=== PATIENT | female | born 1930 | race Caucasian/White ===

== ENCOUNTER 2019-04-30 01:19 | Inpatient (IN) ==
[2019-04-30] MEDS ORDERED: NS 1,000 ML IV ONE (01:47)
[2019-04-30] MEDS ORDERED: APRESOLINE IV ONE (01:47)
[2019-04-30 02:01] LABS: BASO# 0.04 X1000 (0.0-0.2); BASO% 0.5 % (0.0-0.8); EOS# 0.35 X1000 (0.0-0.7); EOS% 4.7 % (0.0-10.0); HEMATOCRIT 33.1 % (37.0-47.0); HEMOGLOBIN 10.9 g/dL (12.0-16.0); LYMPH# 1.42 X1000 (1.2-3.4); LYMPH% 19.3 % (20.5-51.1); MCH 32.7 PG (27-31); MCHC 32.9 g/dL (33-37); MCV 99.4 FL (81-99); MONO# 0.59 X1000 (0.11-0.59); MPV 9.4 FL (7.4-10.4); NEUT# 4.97 X1000 (1.4-6.5); NEUT% 67.5 % (42.2-75.2); PLT 366 X1000 (130-400); RBC 3.33 XMIL (4.2-5.4); RDW 14.8 % (11.5-14.5); WBC 7.37 X1000 (4.8-10.8)
[2019-04-30 02:06] LABS: INR 1.01; PROTIME 13.4 Seconds (11.0-16.0)
[2019-04-30 02:07] LABS: PTT 36.5 Seconds (22.3-41.8)
--- NOTE | 2019-04-30 02:08 | PROVIDER DOCUMENTATION ---
This chart was entered by Syl Lacy Scribe, acting as scribe for Zachary Matos MD. HPI-Neurological Disorder - General Chief Complaint: Wheezing Stated Complaint: NO ENERGY, WEAK, WHEEZING Time Seen by Provider: 04/30/19 01:31 Source: patient Allergies/Adverse Reactions: Patient Allergies Allergy/AdvReac Type Severity Reaction Status Date / Time Penicillins AdvReac Unknown Verified 04/30/19 02:03 Home Medications: Home Medication List Medication Instructions Recorded Confirmed Last Taken Type Loratadine [Claritin] 10 mg PO DAILY 04/30/19 04/30/19 Unknown History - History of Present Illness-Neuro Nature of Presenting Problem: 88 y/o female presents to ED with fatigue, decreased ability to walk/stand, vision loss in R eye, SOB, and numbness in legs/feet onset this afternoon. Pt denies any speech disturbances or hx CVA. of pt reports she has had a cold for the past 4 days. Pt denies hx HTN. Pt states her vision is back to normal now and started clearing about 3 hours after onset. Pt is alert and oriented. Severity: reports: moderate Onset/Duration: reports: this afternoon Timing: reports: still present, improving Context: reports: paresthesia, other (fatigue, decreased ability to walk/stand, vision loss in R eye, SOB) Character of Altered Mental Status: reports: N/A Any recent trauma/injury?: reports: none Character of Deficits: reports: new weakness, vision problem/glaucoma, decreased ability to stand, decreased ability to walk New weakness or altered sensation location:: reports: RLE, LLE Cognitive Baseline: alert, oriented x3 Gait Baseline: walks without assistance Associated Symptoms: reports: short of breath, decreased ability to walk or stand, fatigue, numbness in legs/feet, paresthesia, tingling in legs/feet, trouble walking, vision changes, weakness Similar Symptoms Previously?: No Recently seen or treated by another doctor?: No Review of Systems - Adult - REVIEW OF SYSTEMS - ADULT Constitutional: reports: fatique. denies: chills, fever Eyes: reports: decreased vision (R eye). denies: eye pain Ears, Nose, Mouth & Throat: reports: no symptoms reported Cardiovascular: denies: chest pain, palpitations Respiratory: reports: shortness of breath. denies: cough Gastrointestinal: denies: abdominal pain, diarrhea, nausea, vomiting Genitourinary: reports: no symptoms reported Musculoskeletal: reports: no symptoms reported Integumentary: reports: no symptoms reported Neurological: reports: numbness (legs/feet), other (decreased ability to walk/stand). denies: dizziness/vertigo, seizure Psychiatric: reports: no symptoms reported Endocrine: reports: no symptoms reported Hematologic/Lymphatic: reports: no symptoms reported Allergic/Immunologic: reports: no symptoms reported All Other Systems: Reviewed and Negative Past History - Adult - PAST MEDICAL HISTORY-ADULT Review of Records: reports: Old Records Reviewed, Nursing Assessment Review, M edications Reviewed Major Childhood Illnesses: reports: denies history - PRIOR SURGERIES/PROCEDURES Surgical/Procedure History: reports: none - IMMUNIZATION STATUS Childhood Immunizations: See Nurse Assessment Flu Vaccine: See Nurse Assessment - FAMILY HISTORY Family History: reviewed, not pertinent - SOCIAL HISTORY Smoking: non-smoker Substance Use: none/never Alcohol Use Frequency: never Living Situation: family Physical Exam- Neurological - Physical Exam-Neuro Initial Vital Signs Reviewed: Yes (200/95) General Appearance: appears well, alert, no apparent distress Eye Exam: bilateral eye: normal inspection, PERRL, EOMI HENMT: normocephalic/atraumatic, moist mucous membranes, normal ENT inspection Head Injury: no evidence of injury Neck: non-tender, full range of motion Respiratory: chest non-tender, normal breath sounds, wheezing (bilaterally) Cardiovascular: normal peripheral pulses, regular rate, rhythm Abdominal Exam: normal bowel sounds, non tender, soft, distended Extremity: normal range of motion, non-tender, 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 Exam: normal hearing, normal speech, PERRL Coordination/Gait: normal finger to nose, normal gait Motor/Sensory: no motor deficit, no sensory deficit, no pronator drift Neurologic: 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 II-XII nml as tested, grossly normal, no motor/sensory deficits Integumentary: normal color, warm/dry Psych/Mental Status: normal mood/affect, normal thought content, normal thought process, oriented x 3 Progress - PLAN OF CARE/RESULTS Progress/Plan/Lab Results: Vital Signs - 8 hr 04/30/19 01:21 04/30/19 01:30 04/30/19 01:32 Temperature 97.8 F Pulse Rate 89 Respiratory Rate 18 Blood Pressure 193/80 221/105 200/95 O2 Sat by Pulse Oximetry 96 94 L 92 L 04/30/19 01:45 04/30/19 01:47 04/30/19 02:41 Temperature Pulse Rate Respiratory Rate Blood Pressure 199/85 201/88 O2 Sat by Pulse Oximetry 94 L 93 L 04/30/19 02:43 04/30/19 02:45 04/30/19 02:47 Temperature Pulse Rate Respiratory Rate Blood Pressure 206/88 O2 Sat by Pulse Oximetry 94 L 95 95 04/30/19 03:00 04/30/19 03:02 04/30/19 03:38 Temperature Pulse Rate 88 Respiratory Rate 16 Blood Pressure 178/95 O2 Sat by Pulse Oximetry 96 96 Laboratory Results - last 24 hr 04/30/19 04/30/19 04/30/19 01:47 01:47 01:47 WBC 7.37 RBC 3.33 L Hgb 10.9 L Hct 33.1 L MCV 99.4 H MCH 32.7 H MCHC 32.9 L RDW Std Deviation 14.8 H Plt Count 366 MPV 9.4 Immature Gran % (Auto) 0.0 Neut % (Auto) 67.5 Lymph % (Auto) 19.3 L [place] % (Auto) 8.0 Eos % (Auto) 4.7 Baso % (Auto) 0.5 Immature Gran # (Auto) 0.00 Neut # (Auto) 4.97 Lymph # (Auto) 1.42 [place] # (Auto) 0.59 Eos # (Auto) 0.35 Baso # (Auto) 0.04 PT INR PTT (Actin FS) Sodium 139 Potassium 4.2 Chloride 102 Carbon Dioxide 25 Anion Gap 12 BUN 16 Creatinine 0.7 Estimated GFR/1.73 m2 > 60 BUN/Creatinine Ratio 23 Glucose 114 H Calculated Osmolality 280 Calcium 9.1 Total Bilirubin 0.31 AST 16 ALT 13 Alkaline Phosphatase 70 Troponin T Mub-E-Bxlcrfmfsiq Pept 541 H Total Protein 6.5 Albumin 4.4 Globulin 2.1 Albumin/Globulin Ratio 2.1 Urine Source Urine Color Urine Turbidity Urine pH Ur Specific [place] Urine Protein Ur Glucose (Stick) Ur Ketones (Stick) Urine Blood Urine Nitrite Urine Bilirubin Urobilinogen Dipstick Urine Leukocytes Urine WBC (Auto) Urine RBC (Auto) U Epithel Cells (Auto) Urine Bacteria (Auto) 04/30/19 04/30/19 04/30/19 01:47 01:47 02:39 WBC RBC Hgb Hct MCV MCH MCHC RDW Std Deviation Plt Count MPV Immature Gran % (Auto) Neut % (Auto) Lymph % (Auto) [place] % (Auto) Eos % (Auto) Baso % (Auto) Immature Gran # (Auto) Neut # (Auto) Lymph # (Auto) [place] # (Auto) Eos # (Auto) Baso # (Auto) PT 13.4 INR 1.01 PTT (Actin FS) 36.5 Sodium Potassium Chloride Carbon Dioxide Anion Gap BUN Creatinine Estimated GFR/1.73 m2 BUN/Creatinine Ratio Glucose Calculated Osmolality Calcium Total Bilirubin AST ALT Alkaline Phosphatase Troponin T < 0.010 Ijx-N-Syacqapauhs Pept Total Protein Albumin Globulin Albumin/Globulin Ratio Urine Source CLEAN CATCH Urine Color STRAW Urine Turbidity CLEAR Urine pH 7.0 Ur Specific [place] 1.011 Urine Protein NEGATIVE Ur Glucose (Stick) NEGATIVE Ur Ketones (Stick) NEGATIVE Urine Blood NEGATIVE Urine Nitrite NEGATIVE Urine Bilirubin NEGATIVE Urobilinogen Dipstick NORMAL Urine Leukocytes SMALL A Urine WBC (Auto) <10 Urine RBC (Auto) <10 U Epithel Cells (Auto) <10 Urine Bacteria (Auto) NEGATIVE Orders Category Date Time Status Nursing- Obtain EKG ONCE Care 04/30/19 01:41 Active Repeat Vital Signs .Blood Pressure Care 04/30/19 03:[address] HEAD W/O CONTRAST [CT] Stat Exams 04/30/19 01:41 Taken cxr [CHEST-1 VIEW] [RAD] Stat Exams 04/30/19 01:43 Taken CBC WITH ELECTRONIC DIFF [HEME] Stat Lab 04/30/19 01:47 Completed COMPREHENSIVE METABOLIC PANEL [CHEM] Stat Lab 04/30/19 01:47 Completed PRO B-NATRIURETIC PEPTIDE Stat Lab 04/30/19 01:47 Completed PROTIME WITH INR [COAG] Stat Lab 04/30/19 01:47 Completed PTT [COAG] Stat Lab 04/30/19 01:47 Completed TROPONIN T Stat Lab 04/30/19 01:47 Completed URINALYSIS W/POSS RFLX CULT [URINALYSIS] Stat Lab 04/30/19 02:39 Completed 0.9% Sodium Chloride Inj [Ns] 1,000 ml Med 04/30/19 01:47 Active IV 125 mls/hr Albuterol 2.5MG/Ipratrop 0.5MG [Duoneb (A & A)] Med 04/30/19 03:09 Discontinued 3 ml INH NOW ONE Aspirin Med 04/30/19 04:01 Once 325 mg PO NOW ONE Hydralazine [Apresoline] Med 04/30/19 01:47 Discontinued 10 mg IV NOW ONE Aerosol Treatments Routine Oth 04/30/19 03:09 Completed Aerosol Treatments Stat Oth 04/30/19 03:09 Completed Oxygen Device Stat Oth 04/30/19 01:47 Completed EKG [EKG] Stat Ther 04/30/19 01:41 Draft While in the ER nurse said that pt slipped off toilet bumping her rt forehead. There was no LOC, AMS or N/V. Admission discussed with Dr Burden who agreed to admit. Result Diagrams: 04/30/19 01:47 04/30/19 01:47 - EKG 1 Time of EKG reading by physician:: 01:58 EKG Read and Signed by:: Zachary Matos EKG Interpretation (*Must complete 3 of following elements*): Normal Rate: 79 Rhythm: NSR [place]: normal QRS: normal NC Interval: normal ST Wave: normal - XRAY 1 XRAY Study: Chest Impression: See EMR Report - CT/MRI 1 CT Study: Head Impression: See EMR Report - CONSULTS/PCP/HOSPITALIST Notification #1 *Consult/PCP/Hospitalist*: Dr Burden Time Discussed: 04:03 Consult Disposition: Will see in ED, Admit Departure - Departure Date of Disposition Decision: 04/30/19 Time of Disposition Decision: 04:03 DIAGNOSIS: TIA (transient ischemic attack), Weakness, UTI (urinary tract infection) Disposition: ADMITTED INPATIENT 09 Certified Medical Emergency: Emergent Condition: Fair Referrals and Follow-Ups: Rohan Du MD [Primary Care Provider] - - Critical Care Note This patient required my direct & personal management of CC.: No Attestation - Physician/ MALLY Attestation Patient care was provided by Advanced Practice Provider:: No The physician spent face to face time with patient:: Yes Advanced Practice Provider documentation review:: Supervising physician onsite and consulted in the evaluation and care of this patient. The physician did have a face to face encounter with the patient. - NIH Stroke Scale NIH Type: Initial Evaluation Level of Consciousness: 0-Alert LOC Questions (ask month and age): 0-Answers Both Correctly LOC Commands (ask to open & close eyes;make a fist, let go): 0-Obeys Both Correctly Best Gaze (horizontal eye movement): 0-Normal Visual (use finger movement, counting or visual threat): 0-No Visual Loss Facial Palsy (show teeth or raise eyebrows & close eyes tght: 0-Symmetrical Movement Motor Function-left arm: 0-Normal Motor Function-right arm: 0-Normal Motor Function-left le-Normal Motor Function-right le-Normal Limb Ataxia(pwypvw-swqi-pdnvww, or heel to mercado): 0-No Ataxia Sensory(pin prick to face,arms,trunk,legs-compare side/side): 0-No Ataxia Best Language(name item/read sentence.Ex-Down to Earth): 0-No Aphasia Dysarthria(Pt read words or say words Ex.Mama,Tip-Top,Thanks: 0-Normal Articulation Extinction and Inattention: 0-Normal NIH Total Score: 0 Modified Travis Score Criteria: 0-no symptoms Stroke tPA Guidelines - Inclusion Criteria for IV tPA 18 years old or older: Yes Ischemic stroke with measurable deficit: No Onset <3 hours ago *OR* 3-4.5 hours ago: No - Exclusion Criteria for IV tPA Evidence of intracranial hemorrhage on CT: No Presentation suggest SAH: No CT reveals defined area of hypodensity: No Evidence of AVM, neoplasm, aneurysm: No Seizure at stroke onset: No Active internal bleeding or acute trauma: No Platelet Count Less Than 100,000: No Heparin Within Last 48 HRS (PTT >Lab normal limits): No INR > 1.7 (warfarin use): No Use IIB/IIIA inhibitors within 24 hours: No Serious Head Trauma Within Last 3 Months: No Arterial Puncture Within Last 7 Days: No Lumbar Puncture Within Last 7 Days: No Repeated systolic Blood Pressure >185 or Diastolic >110: Yes - Additional Exclusion Criteria for IV tPA Currently on Coumadin: No Patient older than 80: Yes Prior stroke and diabetes: No Baseline NIHSS score > 25: No - Relative Contraindications to IV tPA CT reveals extensive area of infarct (>1/3 MCA territory): No Minor or rapidly improving stroke symptoms: Yes Major Surgery or Serious Trauma In Previous 14 Days: No AMI within 3 months: No Gastrointestinal or Urinary Tract hemorrhage in Past 21 Days: No Post - AMI pericarditis: No Blood Glucose Less Than 50 mg/dl or Greater Than 400 mg/dl: No - Consultation Candidate for:: NOT A CANDIDATE Reason not a candidate:: Stroke symptoms resolved. NIH score of 0. This chart was documented by the indicated scribe, (Syl Lacy, Scribmani) and accurately reflects the services I performed and decisions made by me, Zachary Matos MD, as attested by the provider's signature.
[2019-04-30 02:44] LABS: AGAP 12; ALB/GLOB RATIO 2.1; ALBUMIN 4.4 g/dL (3.5-5.0); ALKALINE PHOSPHATASE 70 U/L (32-104); BUN 16 mg/dL (8-22); CALCIUM 9.1 mg/dL (8.8-10.2); CHLORIDE 102 mmol/L (98-107); COSMO 280; CREATININE 0.7 mg/dL (0.5-0.9); ESTIMATED GFR > 60; GLUCOSE 114 mg/dL (70-104); GOT 16 U/L (10-30); GPT 13 U/L (10-36); POTASSIUM 4.2 mmol/L (3.5-5.1); SODIUM 139 mmol/L (136-145); TCO2 25 mmol/L (25-35); TOTAL BILIRUBIN 0.31 mg/dL (0.20-1.00); TOTAL PROTEIN 6.5 g/dL (6.3-8.3)
[2019-04-30 02:52] LABS: URINE SOURCE CLEAN CATCH
[2019-04-30 02:57] LABS: BILIRUBIN URINE NEGATIVE (NEGATIVE); BLOOD URINE NEGATIVE (NEGATIVE); COLOR STRAW; GLUCOSE URINE NEGATIVE (NEGATIVE); KETONE URINE NEGATIVE (NEGATIVE); LEUKOCYTES URINE SMALL (NEGATIVE); NITRITE URINE NEGATIVE (NEGATIVE); PROTEIN URINE NEGATIVE (NEGATIVE); SP GRAVITY URINE 1.011; TURBIDITY URINE CLEAR (CLEAR); UROBILINOGEN URINE NORMAL (NORMAL)
[2019-04-30 02:59] LABS: UR EPITHELIAL CELLS <10 /HPF (<10); URINE BACTERIA NEGATIVE /HPF; URINE RBC <10 /HPF (<10); URINE WBC <10 /HPF (<10)
[2019-04-30] MEDS ORDERED: DUONEB (A & A) INH ONE (03:09)
--- NOTE | 2019-04-30 03:45 | EKG Report ---
Test Performed on : 04/30/2019 01:58:45 AM Test Reason : sob, htn Blood Pressure : / mmHG Vent. Rate : 079 BPM Atrial Rate : 079 BPM P-R Int : 140 ms QRS Dur : 092 ms QT Int : 416 ms P-R-T Axes : 018 020 082 degrees QTc Int : 477 ms Normal sinus rhythm. Normal ECG No previous ECGs available Unconfirmed Result
[2019-04-30] MEDS ORDERED: ASPIRIN PO ONE (04:01)
--- NOTE | 2019-04-30 05:28 | HISTORY AND PHYSICAL ---
PRIMARY CARE PHYSICIAN: Dr. Du. CHIEF COMPLAINT: Right eye vision loss, difficulty ambulating x1 day. HISTORY OF PRESENTING ILLNESS: This is an 88-year-old elderly female without any significant past medical history who had presented to the emergency department with a 1-day history of having right eye vision loss and difficulty ambulating. She states that her vision has been improving over the past several hours. The patient states that this occurred earlier yesterday afternoon and she has been feeling weak. She was trying to get over a cold recently that has been going on for the past 5 days. The patient states that her unsteadiness was worsening and subsequently she had come to the emergency department. In the ED, she was evaluated and due to her presenting symptoms and suspicion of possible TIA it was thought that she would need admission for further management. At the time of my examination, patient denied any fever, chills, chest pain, shortness of breath hemoptysis or any weight changes, but complained of a headache. While she was in the ER and was going to the bathroom, she apparently became unsteady and fell and hit her right forehead. PAST MEDICAL HISTORY: anxiety disorder. PAST SURGICAL HISTORY: None. ALLERGIES: Penicillin and Tapazole. CURRENT MEDICATIONS: Claritin 10 mg p.o. daily. SOCIAL HISTORY: No history of smoking, alcohol or illicit drug use. FAMILY HISTORY: No history of coronary artery disease. REVIEW OF SYSTEMS: Fourteen point review of systems listed as in HPI. Other systems negative. PHYSICAL EXAMINATION: GENERAL: Cooperative, pleasant elderly female. She is without any respiratory distress. VITAL SIGNS: Temperature 97.8 degrees, pulse 89, respiration 18, blood pressure 193/80. HEENT: Extraocular movements intact. PERRLA. There is some small soft-tissue injury in her right forehead. NECK: No masses. CHEST: Scattered wheezes. CARDIOVASCULAR: Regular rate and rhythm. ABDOMEN: Soft. Positive bowel sounds. EXTREMITIES: No edema. NEUROLOGIC: She is awake, alert, oriented x1. GENITOURINARY: No bladder distention. SKIN: Warm. LABORATORIES AND STUDIES: WBC 7.37, hemoglobin 10.9, hematocrit 33.1, platelets 366,000. Sodium 139, potassium 4.2, chloride 102, CO2 is 25, BUN is 16, creatinine 0.7, glucose 114. Troponin 0.010. CT of the head was unremarkable. ASSESSMENT: This is an 88-year-old elderly female without any significant past medical history who had presented to emergency department due to patient having vision loss in the right eye and unsteadiness in her gait. She was seen in the ED and due to her presenting symptoms she will require admission for further management. 1. Suspected transient ischemic attack. We will need to rule out cerebrovascular accident. 2. Upper respiratory infection/bronchitis. 3. Elevated Blood Pressure PLAN: 1. We will admit patient to medical floor with telemetry. 2. Continue with stroke workup. 3. We will check MRI of the brain. 4. Consult Neurology. 5. Continue with supportive treatment for bronchitis. 6 Monitor BP closely. 7. Put patient on DVT prophylaxis with SCD. 8. We will continue to follow, and reassess and make further recommendation based on patient's clinical course. cc: Rolando Burden MD MTDD
--- NOTE | 2019-04-30 05:49 | Diag Imaging Result Doc PS360 ---
EXAM: CT HEAD W/O CONTRAST HISTORY: tia stroke TECHNIQUE: CT head without contrast COMPARISON: None. FINDINGS: No parenchymal hemorrhage. No epidural or subdural hematoma. No subarachnoid hemorrhage. There is mild atrophy with mild chronic microvascular ischemic changes. No mass identified on this noncontrasted exam. No hydrocephalus. No sinus opacification. IMPRESSION: 1.No hemorrhage 2.Mild atrophy with chronic microvascular ischemic changes. 3.A preliminary report was given at 2:56 AM This exam was performed using automated exposure control, adjustment of mA or kV according to patient size, and/or use of iterative reconstruction technique. Electronically signed by Kenyon Reynolds 04/30/2019 5:47 AM
--- NOTE | 2019-04-30 06:53 | Diag Imaging Result Doc PS360 ---
CHEST-1 VIEW - 04/30/2019 INDICATION: wheezing COMPARISON: None FINDINGS: The lungs are normally expanded and clear. Heart size and mediastinal contours are normal. No pneumothorax or pleural effusion. There is a small calcified granuloma in the left midlung. IMPRESSION: Negative exam. Electronically signed by Tushar Martinez 04/30/2019 6:51 AM
[2019-04-30] MEDS ORDERED: DUONEB (A & A) INH PRN (07:42)
[2019-04-30] MEDS ORDERED: TESSALON PO PRN (07:42)
[2019-04-30] MEDS ORDERED: PREDNISONE PO ONE (08:46)
[2019-04-30] MEDS ORDERED: COZAAR PO SCH (09:00)
--- NOTE | 2019-04-30 11:18 | CONSULTATION ---
DATE OF CONSULTATION: 04/30/2019 HISTORY OF PRESENT ILLNESS: Ms. Whalen is 88 years old and she noted focal loss of visual field following a fall yesterday. She believes she has recovered back to baseline today. She reports feeling poorly for the last few months and she attributes that to having "a cold." She had been taking hawf-mvd-qlpvezo medicines including loratadine and pseudoephedrine regularly for the last few months. She was at home and finished lunch yesterday. She turned and fell. Her report is that she simply lost balance and sat down quickly. She believes she did not strike her head. She believes there was not altered awareness, unconsciousness, or memory gap. She collected herself, scooted over and pulled up on a piece of furniture and then ambulated without difficulty. A short time after that, she was seated watching television and noted she could see the left side of the television and she could not see the right side well. She rested and believes her vision recovered spontaneously in an uncertain time frame, possibly 15 or 20 minutes. She did not do any cover/uncover testing or gaze left and right to test vision. She did not notice change in speech, chewing and swallowing, hearing, facial appearance, gait, power. She specifically denies associated focal weakness and numbness. She believes she has been unsteady and that she has had some imbalance for the last few months. She fell once a few months ago and she attributes that to a dog getting in her way. She thinks she might have fallen 1 other time, but that was minor and she does not recall details. There is no history of previous diagnosed stroke. She has never had seizure, serious head injury, or other neurologic event. She did bump her head in the bathroom overnight in the emergency room, but that seems to have been unrelated to her chief complaint. She has had carotid ultrasound with reports pending. She left for brain MRI as I finished examining her. She has been afebrile. Heart rate has been stable in the 80s. Systolic blood pressures were 190s- 220s on presentation and 150s-180s in recent hours. Computer record shows carotid ultrasound was unremarkable done 09/25/2014. She does not recall specifically why that study was done and she is certain there was not an incident leading to that study. PAST HISTORY: Remarkable for cataracts with recent eye procedures bilaterally. She has eye drops for each eye, loratadine and pseudoephedrine as above, [id number] vitamins. She reports some soreness in the limbs and trouble getting up steps when she was taking a statin, so she stopped that a few years ago. She reports she has never needed blood pressure medicine. She has never had diabetes mellitus. She does not smoke cigarettes or use ethanol. PHYSICAL EXAMINATION: On exam, Ms. Whalen is awake, alert, attentive and appropriate. Speech is not dysarthric. Language function is intact on bedside testing. Memory is good. She has some ecchymosis around the right lateral periorbital area. There is no skull defect. There is no meningismus. Head and neck are otherwise unremarkable. Visual santacruz are full, tested monocularly and binocularly to confrontational finger counting. Extraocular movements are full. The right pupil reacts slightly to light. I could not see definite pupil reaction on the left. Facial motility is symmetric. Gag is intact. Tongue is midline. She can hear. Shoulder shrug is equal. Strength is normal in the arms and legs. She did well on icznwh-mv-kphh testing bilaterally. She reports good pinprick appreciation symmetrically over the limbs. Proprioception is good at the great toe MTP joint bilaterally. Reflexes are trace at the ankles, 1+ at the knees, 1+ at the wrists symmetrically. Plantar response is silent bilaterally. Strength is normal in the arms and legs. I did not test her gait. IMPRESSION: She gives very good history suggesting transient right hemianopia. She had fallen just before that with unclear explanation. Fall might have been due to transient right hemiparesis or transient cerebellar deficit or she may have fallen related to blood pressure or other problems. She seems completely recovered now. I will check on the MRI when that is reported. I do not have any urgent suggestion right now. I would continue allowing blood pressure in the current range and then consider treating that more aggressively if workup is negative for acute stroke. She may be a candidate for retrial with statin or newer medicine for cholesterol management. She will likely be a candidate for antiplatelet medicine. After MRI and other workup is reported, she might get some benefit with physical therapy. Further plans will depend on her clinical course. Thanks for asking Neurology to see Ms. Whalen. cc: MD Rolando Serna III, MD [facility]
[2019-04-30] MEDS: DUONEB (A & A) INH SCH ×2 (11:20→19:42)
--- NOTE | 2019-04-30 11:32 | Diag Imaging Result Doc PS360 ---
EXAM: MRI BRAIN W/WO CONTRAST HISTORY: stroke TECHNIQUE: MRI brain with and without contrast. Axial, sagittal, and coronal images obtained in multiple sequences. These are followed by post contrasted axial and coronal images. COMPARISON: Recent CT FINDINGS: Small recent lacunar infarcts medially in the left temporal lobe. There are mild chronic microvascular ischemic changes. No mass or midline shift. No enhancing lesion on the post contrasted images. Mild atrophy. No epidural or subdural fluid collection. Normal orbits. Mild sinus mucosal thickening. No opacification. IMPRESSION: 1.Small recent medial left temporal infarcts 2.Mild atrophy with chronic microvascular ischemic changes 3.Mild sinusitis Electronically signed by Kenyon Reynolds 04/30/2019 11:30 AM
--- NOTE | 2019-04-30 18:08 | PROGRESS NOTE ---
DATE: 04/30/2019 SUBJECTIVE: The patient's chart was fully reviewed. She presented with dizziness and loss of vision in 1 eye. She really had been brought to the hospital because of wheezing and shortness of breath that was not resolving. As a result of her complaining of loss of vision in the right eye, CT scan was performed which was negative, but she was admitted for stroke workup. The problem with the vision in the right eye disappeared or evaporated by the time she was transferred to the floor, possibly even during her emergency room stay. No real infectious process was identified and she was treated for bronchitis. VITAL SIGNS: 97.8, 88, 16, 161/51, 96% saturated on room air. PHYSICAL EXAMINATION: Time of my examination, the patient was awake, alert, oriented and conversive and appropriate. She vociferously complained about being in the hospital and wanted to be discharged. I tried to explain to her the risks involved.Lungs: Had bilateral end-expiratory wheezes with good air movement. No respiratory distress. Cardiovascular: Was regular. Neck: Revealed no carotid bruits. Extremities: No peripheral edema. LABORATORIES: All labs were thoroughly reviewed. Her white cell count was 7.3, hematocrit 33.1, blood sugar 114. Troponin was negative. Urinalysis was normal. CT scan of the head did not show any acute process. DISCUSSION AND DECISION-MAKIN. I saw the patient in the morning and she seemed fine and wanted to go home. I convinced her to stay for further workup. She had a consultation with Dr. Marin who agreed that she may have had a stroke. MRI came back as a few recent lacunar infarcts which potentially could have influenced her situation. At the time of this dictation, I did not have an official report on carotid ultrasound or echocardiography. There had been no reports of any problems with telemetry monitoring either. The patient again complained that she wanted to go home but I told her I needed to observe her heart rhythm overnight for a bit longer and to have those reports officially in my hand at the time of discharge. The patient is on aspirin. 2. The patient's blood pressure was elevated at the time of arrival to the emergency room. It remained high throughout the day. My review of office records showed no such elevations in blood pressure during routine visits. Dr. Marin did not want to drop her pressure too much, so we avoided giving any further blood pressure medication. 3. It was noted the patient has a moderate normocytic anemia, which will need workup in the future. 4. The patient states that she will need something to sleep and she has not slept all night or all day and I have given her a dose of Restoril tonight to try and help her relax. The overall plan is that if telemetry monitoring is okay and we have reports that the carotid arteries and echocardiogram are grossly normal then we will likely send her home with antihypertensive medication and aspirin. cc: MD Rolando Simmons MD
[2019-04-30] MEDS ORDERED: RESTORIL PO SCH (21:00)
--- NOTE | 2019-04-30 21:15 | ECHO REPORT ---
ORDER DATE: 04/30/2019 INTERPRETING PHYSICIAN: Dr. Yeyo Aguillon. ECHOCARDIOGRAPHIC MEASUREMENTS: 1. Interventricular septum 1.2 cm. 2. Left ventricular posterior wall 1.2 cm. 3. Diastolic diameter 3.5 cm. 4. Aorta 2.5 cm. SUMMARY OF THE 2-DIMENSIONAL IMAGIN. Aortic valve leaflets were trileaflet. Aortic valve leaflets were sclerosed. 2. Pulmonic valve was normal. There was mild pulmonary regurgitation. 3. Tricuspid valve was normal. 4. Mitral valve leaflets were mildly thickened. There was moderate mitral annular calcification. 5. Normal left ventricular cavity size. Concentric left ventricular hypertrophy. Estimated ejection fraction of 70%. 6. There was left atrial enlargement. 7. There was mild mitral regurgitation. There was diastolic dysfunction grade 2. 8. There was mild tricuspid regurgitation. Peak velocity across the tricuspid valve was 3 m/sec. 9. Pulmonary artery systolic pressure was 46 mmHg. 10. There was no aortic stenosis. There was no aortic regurgitation. 11. There was no pericardial effusion or obvious intracardiac mass or thrombus seen. cc: MD Rohan Magaña MD Lloyd James, MD
[2019-05-01 07:34] LABS: BASO# 0.02 X1000 (0.0-0.2); BASO% 0.3 % (0.0-0.8); EOS# 0.12 X1000 (0.0-0.7); EOS% 2.1 % (0.0-10.0); HEMATOCRIT 34.3 % (37.0-47.0); HEMOGLOBIN 11.2 g/dL (12.0-16.0); IMM GRAN# 0.02 X1000 (0.0-0.04); IMM GRAN% 0.3 % (0.0-0.5); LYMPH# 1.58 X1000 (1.2-3.4); LYMPH% 27.1 % (20.5-51.1); MCH 32.7 PG (27-31); MCHC 32.7 g/dL (33-37); MONO# 0.51 X1000 (0.11-0.59); MONO% 8.8 % (1.7-9.3); MPV 9.7 FL (7.4-10.4); NEUT# 3.57 X1000 (1.4-6.5); NEUT% 61.4 % (42.2-75.2); PLT 371 X1000 (130-400); RBC 3.43 XMIL (4.2-5.4); RDW 14.9 % (11.5-14.5); WBC 5.82 X1000 (4.8-10.8)
[2019-05-01 08:04] LABS: AGAP 11; BUN 17 mg/dL (8-22); CALCIUM 9.1 mg/dL (8.8-10.2); CHLORIDE 103 mmol/L (98-107); COSMO 281; CREATININE 0.6 mg/dL (0.5-0.9); ESTIMATED GFR > 60; GLUCOSE 101 mg/dL (70-104); POTASSIUM 4.7 mmol/L (3.5-5.1); SODIUM 140 mmol/L (136-145); TCO2 26 mmol/L (25-35)
[2019-05-01] MEDS: DUONEB (A & A) INH SCH ×2 (08:12→19:37)
[2019-05-01] MEDS ORDERED: COZAAR PO ONE (09:15)
--- NOTE | 2019-05-01 10:49 | PROGRESS NOTE ---
DATE: 05/01/2019 SUBJECTIVE: The patient states that she had an awful night. She stated that multiple times during our interview, was never able to really quantify and awful other than that the bed was uncomfortable and she did not feel in control. She was very nervous and anxious all night despite being given some Restoril to help her relax and sleep. She may have had a paradoxical reaction in fact. OBJECTIVE: Vital Signs: 97.3, 89, 16, 195/79. Lungs: The patient's speech is clear, but she seems confused and agitated. Cardiovascular: Regular. Lungs: Show very mild end-expiratory wheeze and a mild nonproductive cough. She is in no distress. Cardiovascular: Regular. Neurologic: The patient states that she cannot see well out of her right eye, although I was never able to confirm visual santacruz appropriately. She states that she feels clumsy in her right arm and indeed her [id number] on the right side is abnormal. Left side seems normal. She has full capability and range of motion of the right side, but it seems uncoordinated. Strength seems reasonable on the right side. She has normal sensation in her right arm. LABORATORY: Hematocrit 34.3 Electrolytes normal. LDL cholesterol 136. DISCUSSION AND DECISION-MAKIN. I had hoped that the patient would sleep well and blood pressure would be reasonable this morning and that I could discharge her home. Her MRI showed multiple left temporal recent lacunae. Echocardiogram was normal. Telemetry monitoring was normal. I do not have an official report from carotid Doppler, but I did not get any type of report verbally from them indicating any acute problems. They are usually very good about calling me in regard to that. 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 I cannot rule out medication interaction causing some of her difficulty. I am going to cancel any further sedatives for her and I have added antihypertensive medication to her aspirin. We will continue to monitor on telemetry and hopefully if all this settles down, she may be able to just be discharged in a day or two. 1. The patient presented with some mild bronchitis. She continues to have wheezing. I am going to put her on a little bit of steroids which she may need to be discharged home on. She has not been febrile and most certainly has not had a white count or any other indication of serious infection. cc: Rohan Du MD
--- NOTE | 2019-05-01 11:06 | Carotid Study ---
DATE: 04/30/2019 REQUESTING PHYSICIAN: Dr. Burden INFRASTRUCTURE ENGINEER: Judy INDICATIONS: Syncope. PREVIOUS COMPARISON: 09/25/2014 EQUIPMENT: [employer] Vivid E9 ultrasound system a 9 L-D transducer. FINDINGS: Complete diagram of ultrasound images can be seen scanned in the patient's medical record. The peak systolic velocity noted on the right side is 106 and is noted in the mid internal carotid artery. The peak systolic velocity noted on the left side in the distal internal carotid artery and is noted to be 151. The calculated internal carotid ratio on the right is 1.13 and on the left 1.49. Calculated stenosis on the right 0 to 39 percent, left 60 to 79 percent, likely closer to the 60 percent. There appears to be atherosclerosis noted. This is producing a severe stenosis on the left. This is worse than previous study. Both vertebral arteries were antegrade flow. INTERPRETATION: Worsening stenosis on the left, now severe in the range of 60 to 79 percent, closer to the 60 percent range, though the right side is normal to mild. This is worsening from previous study done in 2014. cc: MD Rolando Barroso MD Timothy P. Weirich, MD
--- NOTE | 2019-05-01 12:35 | PROGRESS NOTE ---
DATE: 05/01/2019 Ms. Whalen reports a restless night. She has not had much headache today. She noticed return of right visual field loss this morning or overnight. at the bedside noticed when she woke up that her speech seemed slurred. On exam, she is awake, alert, oriented now. Speech is slightly dysarthric, a little bit changed since yesterday. Language function is intact on brief bedside testing. I did not test her cognitive function today. She has right hemianopia on bedside testing by confrontational finger counting. The right nasolabial fold is less prominent than the left. Tongue protrudes slightly toward the right. She has right hemiparesis grading 4/5 at the right deltoid and wrist extensor. She did rapid alternating movements better with the left hand than the right. She did better with left [id number] than with the right. She is a little bit inconsistent on sensory testing but generally reports equal pinprick and light touch appreciation on the left and right. She was a little bit slow responding to proprioception questions when testing the right index finger at the PIP joint, but she answered each correctly. Proprioception is intact on the left. I did not test her gait. Systolic blood pressures have been significantly elevated, recorded 222 and 195 several hours ago. After I saw her yesterday, she had brain MRI which showed some small acute ischemic changes in the left hemisphere posteriorly, mostly temporal. Echocardiogram did not show source of embolus. Carotid ultrasound report continues pending. I am concerned that she may have had some extension of recent ischemic posterior left hemisphere infarction and I am also concerned that, in light of her elevated blood pressure, she might have had a bleeding event. We will get urgent CT scan of the head and further plans will depend on that report. We will need to get her blood pressure down and depending on findings, may need to start antiplatelet medicine. was present and attentive and I discussed my concerns with him and with patient. Thanks for asking Neurology to see Ms. Whalen. cc: MD Rohan Serna III, MD MTDD
--- NOTE | 2019-05-01 14:26 | Diag Imaging Result Doc PS360 ---
CT HEAD W/O CONTRAST - 05/01/2019 INDICATION: worse right hemianopia,dysarthria, rt hemiparesis COMPARISON: 04/30/2019 FINDINGS: The ventricles and sulci are normal in size and contour. No intracranial mass or hemorrhage. Stable patchy cerebral white matter lucency bilaterally compatible with chronic microvascular ischemia. No new abnormalities. The skull is intact. The sinuses are clear. IMPRESSION: No definite acute process. No change from prior. This exam was performed using automated exposure control, adjustment of mA or kV according to patient size, and/or use of iterative reconstruction technique Electronically signed by Tushar Martinez 05/01/2019 2:24 PM
--- NOTE | 2019-05-01 15:06 | Diag Imaging Result Doc PS360 ---
CT ANGIOGRAM HEAD - 05/01/2019 INDICATION: lrft side infarct TECHNIQUE: Axial CT images were obtained after administering intravenous contrast. Three-dimensional angiographic images were generated. COMPARISON: Head CT 05/01/2019 FINDINGS: On the left side, there is severe vascular disease with calcification of the carotid siphon. There is moderate to severe stenosis of about 70% narrowing. The anterior and middle cerebral arteries on the left side are normal. There is origin of both posterior cerebral arteries and these appear to be patent. On the right side, there is heavy vascular disease with calcification of the carotid siphon. There is moderate stenosis of about 60% narrowing. The anterior and middle cerebral arteries are patent. The posterior cerebral artery is patent. The vertebral and basilar arteries are very small in size. The basilar artery ends in the superior cerebellar arteries. 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 This exam was performed using automated exposure control, adjustment of mA or kV according to patient size, and/or use of iterative reconstruction technique Electronically signed by Tushar Martienz 05/01/2019 3:04 PM
--- NOTE | 2019-05-01 16:05 | PROGRESS NOTE ---
DATE: 05/01/[address] of the head is reported to show nothing new. On my view, there may be slightly more lucency in the left posterior temporal region than on prior study, but there is nothing conclusive. CT angiogram shows significant intracranial stenosis in the carotid siphon bilaterally, worse on the left. Most recent blood pressure was recorded 161/58. In light of the intracranial stenosis, I would continue to permit moderate hypertension. I think systolic in the 150s-160s range is reasonable. We might consider repeat MRI electively to see if there is new infarction. That is not urgent. We might consider referral for outpatient stroke clinic evaluation. At this point, although the left dominant hemisphere is at risk, she is clinically stable and I do not think we have to do anything urgently. I would continue to monitor blood pressure, try to keep systolics in the range stated above, hydrate and follow clinically. I would start antiplatelet medicine unless contraindicated. Thanks for asking Neurology to see Ms. Whalen. cc: MD Rohan Serna III, MD MTDD
[2019-05-02 07:56] VITALS: BP 173/70
[2019-05-02] MEDS ORDERED: PLAVIX PO SCH (09:00)
[2019-05-02] MEDS ORDERED: PREDNISONE PO SCH (09:00)
[2019-05-02] MEDS ORDERED: COZAAR PO SCH (09:00)
--- NOTE | 2019-05-02 09:23 | DISCHARGE SUMMARY ---
ADMISSION DATE: 04/30/2019 DISCHARGE DATE: 05/02/2019 HISTORY OF PRESENT ILLNESS: This is an 88-year-old elderly female without any significant past medical history who presented to the emergency department with a 1-day history of having right eye vision loss and difficulty ambulating. States that the vision improved over the last several hours. The patient states that it occurred the day before admission and had been feeling weak, trying to get over her cold, been going on for the past 5 days. She had some unsteadiness that was worse and subsequently came to the emergency department. She was evaluated due to presenting symptoms and suspicion of possible TIA and thought she would need admission for further management. At the time of exam, she denied any fever or chills, chest pain, shortness of breath, hemoptysis, or weight change. While in the emergency room going to the bathroom, she was unsteady and fell and hit her right forehead. She has right periorbital ecchymosis. No past surgical history, no medical problems. ADMISSION DIAGNOSES: 1. Suspected transient ischemic attack. I want to look for possible cerebrovascular accident. 2. Upper respiratory bronchitis, postnasal drainage. 3. Elevated blood pressure. IMAGIN. CT of the head without contrast. No hemorrhage. Mild atrophy, chronic microvascular ischemic changes. 2. Chest x-ray was negative. 3. Carotid Doppler done on 04/30/2019. Worsening stenosis on the left, now severe in the range of 60 to 79 percent, closer to the 60% range, though the right side is normal to mild. This is worsening from previous study of 2015. HOSPITAL COURSE: Dr. Marin was consulted. Has a suggestion of right hemianopia. She has fallen just before for unclear explanation. The fall may have been due to a transient right hemiparesis or transient cerebellar deficit. She may have fallen related to blood pressure or other problems. MRI was done of the head, small recent medial left temporal infarcts, mild atrophy, chronic microvascular ischemic changes and mild sinusitis reported. Echocardiogram 04/30/2019 showed normal left ventricle with good ejection fraction. She had mild mitral regurgitation, mild tricuspid regurgitation, otherwise no valvular dysfunction. She had a head CTA, significant vascular disease of the carotid siphons bilaterally, left greater than the right. She would like to go home. She has left significant intracranial stenosis. Try and keep her blood pressure tolerate, blood pressure is 150 to 160 in systolic and then she will get followup as an outpatient in regards to her carotid vessels. DISCHARGE MEDICATIONS: Plavix 75 mg a day, Cozaar 50 mg a day, prednisone 10 mg a day, and I think she has some Tessalon Perles she can have. She will continue her eyedrops, latanoprost 1 drop I think each eye at bedtime and then she is on Claritin 10 mg a day which she can continue. RECENT LABORATORY DATA: Yesterday, hematocrit 34, hemoglobin 11. Electrolytes unremarkable. cc: MD Rohan Bradshaw MD
[2019-05-02] MEDS: DUONEB (A & A) INH SCH (09:47)
== END 2019-05-02 10:54 | disposition home health service (06) | DRG 66 ==
LOC: ED 01:19 → SUATTDRO 06:36 → 1N 06:36 → 3N 06:52
PROVIDERS: ADMIT Internal Medicine; ATTEND Internal Medicine